=== PATIENT | female | born 1990 | race African-American/Black ===

== ENCOUNTER 2018-08-18 22:38 | Inpatient (IN) | payer BC ==
--- NOTE | 2018-08-19 00:08 | ULT ---
RIGHT UPPER QUADRANT ULTRASOUND: 08/18/2018 HISTORY: Cholelithiasis noted on recent CT. Biliary obstruction. COMPARISON: None. TECHNIQUE: Multiplanar hernandez-scale sonographic imaging of the right upper quadrant obtained. FINDINGS: The imaged pancreas is unremarkable. The distal body and tail are obscured by bowel gas. There is n o focal liver lesion. There is mild diffuse intrahepatic biliary dilatation. The gallbladder is alvaro led with numerous stones. No gallbladder wall thickening or pericholecystic fluid. The front end developer designer reports a negative Higgins sign. The common bile duct is dilated, measuring up to 1 cm. The right ki dney measures 9.5 cm in craniocaudal dimension and demonstrates no stone or hydronephrosis. IMPRESSION: Numerous stones are seen within the gallbladder. There is intrahepatic and extrahepatic biliary dila tation as well. Findings suggest a biliary obstructive process, possibly on the basis of nonvisualiz ed choledocholithiasis. Please consider follow-up magnetic resonance cholangiopancreatography or end oscope retrograde cholangiopancreatography, and correlation with liver function tests. POS: [facility]
[2018-08-19] MEDS ORDERED: Ondansetron PF 4 MG/2 ML Vial IVP PRN ×2 (01:13→08:05)
[2018-08-19] MEDS ORDERED: Ondansetron ODT 4 MG TAB SL PRN (01:13)
[2018-08-19] MEDS ORDERED: Acetaminophen 325 MG TAB PO PRN (01:13)
[2018-08-19] MEDS ORDERED: Morphine 4 MG/ML VIAL SLOW IVP PRN (01:13)
[2018-08-19] MEDS: Dextrose 5 % And 0.9 % NaCl 1,000 ML IV SCH ×2 (01:34→07:29)
[2018-08-19 02:13] VITALS: BMI 31.0
[2018-08-19] MEDS ORDERED: Morphine 4 MG/ML VIAL IV PRN (08:30)
[2018-08-19] MEDS ORDERED: Pantoprazole 40 MG VIAL IVP SCH (09:00)
[2018-08-19] MEDS: Pantoprazole 40 MG VIAL IVP SCH (09:05)
[2018-08-19] MEDS: D5 1/2 NS w/20 mEq KCL 1,000 ML IV SCH ×3 (09:06→20:42)
[2018-08-19 10:33] LABS: ALT (SGPT) 840 U/L (8-55); AST (SGOT) 869 U/L (5-34); Alkaline Phosphatase 328 U/L (40-150); Anion Gap 13 mmol/L (10-20); BUN (Urea Nitrogen) 5 mg/dL (7.0-18.7); Bilirubin, Total 3.5 mg/dL (0.2-1.2); Calc. Creatinine Clearance 154 mL/min (70-130); Calcium 8.9 mg/dL (7.8-10.44); Carbon Dioxide 21 mmol/L (22-29); Chloride 111 mmol/L (98-107); Estimated GFR-MDRD Greater than 90; Globulin 3.6 g/dL (2.4-3.5); Glucose 73 mg/dL (70-105); Lipase 19 U/L (8-78); Potassium 3.6 mmol/L (3.5-5.1); Protein, Total 7.6 g/dL (6.0-8.3); Sodium 141 mmol/L (136-145)
[2018-08-19] MEDS ORDERED: Fentanyl 100 MCG/2 ML VIAL ONE (12:05)
[2018-08-19] MEDS ORDERED: Iothalamate Meglumine 60% 50 ML VIAL FS ONE (12:07)
[2018-08-19] MEDS ORDERED: Indomethacin 50 MG SUPP ONE ×2 (12:07)
--- NOTE | 2018-08-19 12:48 | HP ---
CHIEF COMPLAINT: Right upper quadrant abdominal pain. HISTORY: The patient is a 27-year-old female, who since her a year ago, has been having intermittent pain in the mid epigastric and right upper quadrant radiating to back, associated with nausea. No vomiting. No fever. She went to the ER yesterday for increased pain. PAST MEDICAL HISTORY: Otherwise, unremarkable. PAST SURGICAL HISTORY: None. MEDICATIONS: No medications. ALLERGIES: NO KNOWN DRUG ALLERGIES. SOCIAL HISTORY: She is single. She works at [employer]. No tobacco. Social alcohol. FAMILY HISTORY: Hypertension and diabetes. PHYSICAL EXAMINATION: VITAL SIGNS: Temperature 98.6, pulse 68, and blood pressure 110/71. GENERAL: Well-developed, well-nourished female, in minimal distress. HEENT: No jaundice. LUNGS: Clear. HEART: Regular rate and rhythm. ABDOMEN: Tender in the right upper quadrant, not really having a Higgins sign. EXTREMITIES: Unremarkable. LABORATORY DATA: Her white count is 6.7, hemoglobin and hematocrit of 12 and 41, and platelet count 220. Electrolytes show an elevated bilirubin at 1.9, AST of 811, ALT of 581, alkaline phosphatase 281. Lipase normal. Urinalysis shows a small amount of bilirubin. test negative. She had an ultrasound that shows numerous gallstones with intra and extrahepatic biliary dilatation consistent with obstruction. ASSESSMENT: Possible choledocholithiasis and cholelithiasis. PLAN: GI consultation for possible ERCP, followed by laparoscopic cholecystectomy. Job ID: [id number]
[2018-08-19] MEDS ORDERED: Ondansetron HCl/PF 4 MG/2 ML Vial IVP PRN (12:49)
[2018-08-19] MEDS ORDERED: HYDROmorphone 2 MG/ML VIAL SLOW IVP PRN (12:49)
[2018-08-19] MEDS ORDERED: Promethazine HCl 25 MG/ML VIAL SLOW IVP PRN (12:49)
[2018-08-19] MEDS ORDERED: Meperidine HCl/PF 25 MG/ML VIAL SLOW IVP PRN (12:49)
[2018-08-19] MEDS ORDERED: Promethazine HCl 25 MG/ML VIAL IM PRN (12:49)
--- NOTE | 2018-08-19 14:22 | RAD ---
ERCP: Date: 08-19-18 History: Intra and extrahepatic biliary ductal dilatation as well as multiple gallbladder calculi. FINDINGS: Nine intraoperative fluoroscopic images from ERCP are submitted for interpretation. Initial image dem onstrates a guidewire in place in the common duct with opacification of the common duct which is dila cosme and the limited visualized intrahepatic ducts are also dilated. Contrast is seen in the region of the cystic duct and partially within the region of the gallbladder. Initial imaging also demonstrate s a small rounded filling defect within the common duct which could be related to gas level or possib ly a calculus. Subsequent imaging demonstrates a balloon catheter in place. Final images question con trast within the duodenum although a significant amount of contrast in the duodenum is not present. IMPRESSION: 1. Biliary ductal dilatation which was also noted on prior ultrasound exam as well as CT of the abdom en on 08-18-18. 2. Small focal filling defect within the distal common duct on provided images which could be related to either a gas bubble or a calculus within the common duct. 3. Images demonstrating a balloon catheter in place in the common duct are provided. 4. Correlation with intraoperative findings is recommended. POS: [facility]
[2018-08-19] MEDS ORDERED: PROPOFOL 200 MG/20 ML VIAL ONE (16:02)
[2018-08-19] MEDS ORDERED: Ondansetron PF 4 MG/2 ML Vial ONE (16:02)
[2018-08-19] MEDS ORDERED: Dexamethasone 20 MG/5 ML VIAL ONE (16:02)
[2018-08-19] MEDS ORDERED: Ketorolac Tromethamine 30 MG/ML VIAL ONE (16:02)
[2018-08-19] MEDS ORDERED: Glycopyrrolate 0.2 MG/ML 5 ML SYRINGE ONE (16:02)
[2018-08-19] MEDS ORDERED: Lidocaine 1% PF 5 ML VIAL ONE (16:02)
[2018-08-19] MEDS ORDERED: Rocuronium Bromide 10 MG/ML (10ML VIAL) ONE (16:02)
--- NOTE | 2018-08-19 19:08 | CON ---
DATE OF CONSULTATION: 08/19/2018 CHIEF COMPLAINT: Abdominal pain. HISTORY OF PRESENT ILLNESS: Ms. Alvarez is a 27-year-old woman, who is one year , who presented to the emergency room with sharp severe epigastric pain. She has had intermittent epigastric pain that she rates 10/10 in severity that occurs 2 to 3 days each month. The pain radiates to her back and then diffusely across her abdomen. She has bloating and fullness associated with this. She has a high fat diet, but the pain does not seem to be directly tied to meals. She has had no nausea, vomiting, diarrhea, constipation, or blood in the stool. PAST MEDICAL HISTORY: She had DVT in a right leg in 2009, for which she was treated with anticoagulation for a period of time and then was discontinued. PAST SURGICAL HISTORY: Negative. FAMILY HISTORY: Her brother had some type of unknown cancer. She has multiple first-degree relatives with diabetes mellitus and hypertension. SOCIAL HISTORY: Occasional alcohol use. No smoking or drugs. ALLERGIES: NO KNOWN DRUG ALLERGIES. MEDICATIONS: Prior to admission, none. REVIEW OF SYSTEMS: Negative x10 systems reviewed except as stated in the history of present illness. PHYSICAL EXAMINATION: VITAL SIGNS: Temperature 98.6, pulse 59, blood pressure 117/80. GENERAL: She is in no acute distress. Alert and oriented x3. HEENT: Eyes have no scleral icterus. Oropharynx is clear without lesions. NECK: No cervical or supraclavicular lymphadenopathy. LUNGS: Clear to auscultation bilaterally. HEART: Regular rate and rhythm without murmur. ABDOMEN: Soft. She has some focal tenderness in the epigastric to right upper quadrant region without guarding. Bowel sounds are present. EXTREMITIES: No lower extremity edema. NEURO: Cranial nerves are grossly intact. LABORATORY DATA: Creatinine 0.81. Bilirubin has increased from 1 to 3.5, AST 869, ALT 840, alk phos 328. Lipase 19. Her white blood cell count was normal last night in the emergency room. She has been afebrile. She had an ultrasound performed last night, which showed gallstones in the gallbladder and common bile duct dilated to 1 cm. IMPRESSION: Choledocholithiasis. She has increasing obstructive liver tests with hepatocellular injury pattern as well. She has stones in the gallbladder with dilated common bile duct. Intermittent epigastric to right upper quadrant pain that is currently controlled with pain medication. She has high probability for choledocholithiasis. No signs of cholangitis or pancreatitis at this point. RECOMMENDATIONS: Endoscopic retrograde cholangiopancreatography today. I discussed the risks and benefits in detail with Ms. Alvarez. If all goes well today, I would anticipate she would undergo laparoscopic cholecystectomy tomorrow. Job ID: [id number]
--- NOTE | 2018-08-19 20:36 | OP ---
DATE OF PROCEDURE: 08/19/2018 PROCEDURE PERFORMED: Endoscopic retrograde cholangiopancreatography with sphincterotomy and balloon stone extraction. PREOPERATIVE DIAGNOSIS: Choledocholithiasis. DESCRIPTION OF PROCEDURE: Informed consent was obtained from the patient. She was sedated with general anesthesia. She was placed in the prone position and a bite block was placed. She received indomethacin rectally. She received lactated Ringer's bolus. The duodenoscope was advanced easily to the second portion of the duodenum. She had some white fluid in the stomach and white fluid standing in the duodenum, which was suctioned. There was clear yellow bile flow from the ampulla. The ampulla was cannulated with a guidewire. The common bile duct was selectively cannulated easily on first touch of the ampulla with the sphincterotome. The cholangiogram was then performed, which revealed a 12-mm common bile duct with a filling defect around 5 to 6 mm in the distal common bile duct. The extrahepatic ducts were dilated. The intrahepatic ducts were unremarkable. The cystic duct did fill partially. A complete sphincterotomy was then performed. There was rapid flow of contrast and bile following the sphincterotomy. A 12-mm balloon was then used to sweep the bile duct, and a 5- to 6-mm black-pigment stone was extracted from the duct. The 12-mm balloon passed easily through the sphincterotomy with minimal resistance. An occlusion cholangiogram was then performed, which confirmed the duct to be clear. The air and fluid were suctioned from her stomach and the procedure was completed without immediate complications. IMPRESSION: 1. Cholangiogram showing 12-mm common bile duct with a 5-mm filling defect in the mid to distal common bile duct. The extrahepatic ducts were dilated, but the intrahepatic ducts were unremarkable. 2. Complete sphincterotomy was performed. 3. A 5- to 6-mm common bile duct black-pigment stone extracted with a 12-mm balloon. The balloon passed easily through the sphincterotomy. Occlusion cholangiogram confirmed the duct to be clear. RECOMMENDATIONS: 1. Check liver tests in the morning. 2. Anticipate cholecystectomy tomorrow. She should be able to have clear liquids tonight and then n.p.o. past midnight as long as there is no evidence of post ERCP pancreatitis. Job ID: [id number]
[2018-08-20] MEDS ORDERED: Famotidine/PF 20 mg/2ml Vial ONE (06:49)
[2018-08-20] MEDS ORDERED: Fentanyl 100 MCG/2 ML VIAL ONE ×2 (06:49→08:59)
[2018-08-20] MEDS ORDERED: Bupivacaine HCl 0.25%/Epi 0.0005/PF 10 ML VIAL FS ONE ×2 (06:56)
[2018-08-20] MEDS ORDERED: cefOXitin Sodium/Dextrose,Iso 2 GM in Premix Bag 1 BAG IVPB SCH (07:30)
[2018-08-20] MEDS ORDERED: ceFOXitin 1 GM VIAL ONE (07:36)
[2018-08-20] MEDS: Pantoprazole 40 MG VIAL IVP SCH (08:19)
[2018-08-20] MEDS ORDERED: Meperidine HCl/PF 25 MG/ML VIAL SLOW IVP PRN (08:23)
[2018-08-20] MEDS ORDERED: Promethazine HCl 25 MG/ML VIAL SLOW IVP PRN (08:23)
[2018-08-20] MEDS ORDERED: Promethazine HCl 25 MG/ML VIAL IM PRN ×2 (08:23→08:38)
[2018-08-20] MEDS ORDERED: Mag-Al 1200 mg/1200 mg/30 ML UDCUP PO PRN (08:38)
[2018-08-20] MEDS ORDERED: hydrALAZINE 20 MG/ML VIAL SLOW IVP PRN (08:38)
[2018-08-20] MEDS ORDERED: Dextrose 5% in Water 1,000 ML IV PRN (08:38)
[2018-08-20] MEDS ORDERED: Calcium Carbonate 500 MG ChewTAB PO PRN (08:38)
[2018-08-20] MEDS ORDERED: Dextrose 50% Abboject 50 ML SYRINGE SLOW IVP PRN (08:38)
[2018-08-20] MEDS ORDERED: HYDROcodone/Acetaminophen 10/325 mg Tablet PO PRN (08:38)
[2018-08-20] MEDS ORDERED: Morphine 4 MG/ML VIAL SLOW IVP PRN (08:38)
[2018-08-20] MEDS ORDERED: Ondansetron PF 4 MG/2 ML Vial IVP PRN (08:38)
[2018-08-20] MEDS: D5 1/2 NS w/20 mEq KCL 1,000 ML IV SCH ×2 (09:32→13:58)
[2018-08-20] MEDS: Enoxaparin Sodium 40 MG/0.4 ML SYRINGE SC SCH (09:32)
[2018-08-20] MEDS: Famotidine 20 MG TAB PO SCH ×2 (09:36→20:34)
[2018-08-20] MEDS: Famotidine/PF 20 mg/2ml Vial SLOW IVP SCH ×2 (09:37→21:02)
--- NOTE | 2018-08-20 10:47 | OP ---
DATE OF PROCEDURE: 08/19/2018 PREOPERATIVE DIAGNOSIS: Symptomatic cholelithiasis with history of choledocholithiasis. PROCEDURE PERFORMED: Laparoscopic cholecystectomy. INDICATIONS: This is a 27-year-old female came in with severe right upper quadrant pain, elevated liver function tests, dilated intra and extrahepatic biliary tree. She had an ERCP yesterday with stone extraction and sphincterotomy. FINDINGS: Very dilated cystic duct requiring an Endoloop to close it. DESCRIPTION OF PROCEDURE: After informed consent was obtained, the patient was taken to the operating room and given general endotracheal anesthesia, placed in supine position. Abdomen was prepped and draped in usual fashion. Local anesthesia infiltrated subcutaneously and deep. A subumbilical incision was performed. Subcu divided sharply. The fascia was grasped and two stay sutures placed on either side of midline. Midline was incised. Digital palpation revealed no local adhesions. A blunt 12 mm trocar inserted. Pneumoperitoneum was created to a pressure of 15 mmHg. Under direct vision, three 5-mm ports were placed subcostally. The gallbladder was grasped and advanced superiorly. The peritoneum lysed distally to expose the cystic duct and artery. The cystic duct was very dilated, too large to place a clip. I was able to close off just below the cystic duct with two clips. Then, divided the cystic duct and then closed it with Endoloop as well as an additional clip. Then, the artery was triply ligated and divided between clips and the gallbladder removed from its fossa utilizing electrocautery, removed from the abdomen through the umbilical port. Hemostasis assured. Trocars and retractors removed. The fascia was closed with interrupted 0 Vicryl suture. The skin closed with interrupted 4-0 Rapide. Dermabond applied. The patient tolerated the procedure well, transferred to Recovery in good condition. Sponge and needle count verified correct x2. Job ID: [id number]
[2018-08-20] MEDS ORDERED: PROPOFOL 200 MG/20 ML VIAL ONE (13:03)
[2018-08-20] MEDS ORDERED: Lidocaine 1% PF 5 ML VIAL ONE (13:03)
[2018-08-20] MEDS ORDERED: Rocuronium Bromide 10 MG/ML (10ML VIAL) ONE (13:03)
[2018-08-20] MEDS ORDERED: Ketorolac Tromethamine 30 MG/ML VIAL ONE (13:03)
[2018-08-20] MEDS ORDERED: Dexamethasone 20 MG/5 ML VIAL ONE (13:03)
[2018-08-20] MEDS ORDERED: Glycopyrrolate 0.2 MG/ML 5 ML SYRINGE ONE (13:03)
[2018-08-20] MEDS ORDERED: Ondansetron PF 4 MG/2 ML Vial ONE (13:03)
[2018-08-20 13:49] LABS: #Lymphocytes 0.9 thou/uL (1.20-3.40); #Monocytes 0.3 thou/uL (0.11-0.59); #Neutrophils 14.9 thou/uL (1.40-6.50); %Eosinophils 0.1 % (0.0-10.0); %Lymphocytes 5.3 % (21.0-51.0); %Monocytes 1.7 % (0.0-10.0); %Neutrophils 92.9 % (42.0-75.0); Hemoglobin 13.9 g/dL (12.0-16.0); Mean Corpuscular HGB CONC 31.3 g/dL (32.0-36.0); Mean Corpuscular Hemoglobin 29.5 pg (27.0-31.0); Mean Corpuscular Volume 94.4 fL (78.0-98.0); Mean Platelet Volume 9.5 fL (7.4-10.4); Platelet Count 191 thou/uL (130-400); RBC Distribution Width 12.6 % (11.5-14.5); Red Blood Cell (RBC) Count 4.69 mill/uL (4.20-5.40)
[2018-08-20] MEDS: HYDROcodone/Acetaminophen 10/325 mg Tablet PO PRN ×2 (13:58→20:34)
[2018-08-20] MEDS: cefOXitin Sodium/Dextrose,Iso 2 GM in Premix Bag 1 BAG IVPB SCH ×2 (13:58→23:13)
[2018-08-20] MEDS ORDERED: cefOXitin 2 GM in Sodium Chloride 0.9% 100 ML IVPB SCH (14:00)
[2018-08-20 14:08] LABS: ALT (SGPT) 598 U/L (8-55); AST (SGOT) 159 U/L (5-34); Alkaline Phosphatase 284 U/L (40-150); Anion Gap 17 mmol/L (10-20); BUN (Urea Nitrogen) Less than 4 mg/dL (7.0-18.7); Bilirubin, Total 0.8 mg/dL (0.2-1.2); Calc. Creatinine Clearance 158 mL/min (70-130); Calcium 9.1 mg/dL (7.8-10.44); Carbon Dioxide 19 mmol/L (22-29); Chloride 111 mmol/L (98-107); Estimated GFR-MDRD Greater than 90; Globulin 3.5 g/dL (2.4-3.5); Glucose 94 mg/dL (70-105); Potassium 3.9 mmol/L (3.5-5.1); Protein, Total 7.5 g/dL (6.0-8.3); Sodium 143 mmol/L (136-145)
--- NOTE | 2018-08-20 16:46 | PRG ---
DATE OF SERVICE: 08/20/2018 SUBJECTIVE: Ms. Alvarez had no pain following the ERCP. She underwent cholecystectomy this morning. She has some appropriate postsurgical abdominal wall pain now. She has no nausea or vomiting. She is getting up to walk. OBJECTIVE: VITAL SIGNS: Temperature 97.7, pulse 68, blood pressure 125/84. GENERAL: She is in no acute distress. Alert and oriented x3. LUNGS: Clear to auscultation bilaterally. HEART: Regular rate and rhythm without murmur. ABDOMEN: Soft. Nontender in the left abdomen. She is tender over the epigastric region. Bowel sounds are present. EXTREMITIES: No lower extremity edema. LABORATORY DATA: White blood cell count increased to 16 today. Bilirubin is down from 3.5 to 0.8 today. Transaminases are down from the 800s to an AST of 159 and ALT of 598, alkaline phosphatase 284. IMPRESSION: 1. Choledocholithiasis, status post sphincterotomy and balloon stone extraction. 2. Symptomatic cholelithiasis, status post laparoscopic cholecystectomy today. 3. Elevated liver tests secondary to choledocholithiasis, are trending down. RECOMMENDATIONS: She will work on ambulation and advancing her diet. I will sign off for now. Please call if GI can be of assistance. Job ID: [id number]
[2018-08-21] MEDS: D5 1/2 NS w/20 mEq KCL 1,000 ML IV SCH ×2 (02:04→12:18)
[2018-08-21] MEDS: cefOXitin Sodium/Dextrose,Iso 2 GM in Premix Bag 1 BAG IVPB SCH (05:48)
[2018-08-21] MEDS: Pantoprazole 40 MG VIAL IVP SCH (09:14)
[2018-08-21] MEDS: Famotidine 20 MG TAB PO SCH (09:14)
[2018-08-21] MEDS: Famotidine/PF 20 mg/2ml Vial SLOW IVP SCH (09:15)
[2018-08-21] MEDS: Enoxaparin Sodium 40 MG/0.4 ML SYRINGE SC SCH (09:15)
--- NOTE | 2018-08-21 09:55 | DIS ---
DATE OF ADMISSION: 08/19/2018 DATE OF DISCHARGE: DISCHARGE DIAGNOSES: Early cholecystitis and choledocholithiasis. PROCEDURES DURING ADMISSION: Endoscopic retrograde cholangiopancreatography with sphincterotomy and laparoscopic cholecystectomy. HOSPITAL COURSE: The patient was admitted. CT in the ER had shown both intra and extrahepatic biliary dilatation with elevated liver functions. GI was consulted. She was taken to the endoscopy suite, where she underwent an ERCP. Following day, she underwent a laparoscopic cholecystectomy. She is doing well. She is afebrile. She is tolerating liquids well. Pain is controlled on p.o. medications. She is discharged home on hydrocodone and Zofran. She will follow up with me in 2 weeks. Job ID: [id number]
[2018-08-21 12:07] VITALS: BP 146/84; TEMP 97.8
== END 2018-08-21 11:45 | disposition home or self-care (01) | DRG 419 ==
LOC: ERS 22:38 → SURG B 08-19 00:12
PROVIDERS: ADMIT Surgery; ATTEND Surgery
PROC: 0FT44ZZ Resection of Gallbladder, Percutaneous Endoscopic Approach (ICD-10-PCS; principal; 2018-08-19)
PROC: 0FC98ZZ Extirpation of Matter from Common Bile Duct, Via Natural or Artificial Opening Endoscopic (ICD-10-PCS; 2018-08-19)
DX: K80.60 Calculus of gallbladder and bile duct with cholecystitis, unspecified, without obstruction (principal); Z86.718 Personal history of other venous thrombosis and embolism
CPT/HCPCS: 36415; 74330; 76705; 80053; 83690; 85025; 88304; C9113; J0131; J0694; J1100; J1885; J2001; J2270; J2405; J2704; J3010; J7050; Q9961; S0028